=== PATIENT | female | born 1975 | race Two or more races ===

== ENCOUNTER 2016-11-15 17:16 | Emergency (ER) | payer OTHER ==
[~2016-11-15] VITALS: Ht 157.5 cm; Wt 75.3 kg
[2016-11-15 17:18] VITALS: BP 137/87
[2016-11-15] MEDS ORDERED: ALBUTEROL/IPRATROPIUM 2.5MG/0.5MG, 3 ML NPPB ONE (18:00)
== END 2016-11-15 19:55 | disposition home or self-care (01) ==
LOC: ED 19:49
DX: J20.8 Acute bronchitis due to other specified organisms (principal)
CPT/HCPCS: 71020; 94640; 99284; J7512; J7620